=== PATIENT | male | born 1950 | race Two or more races ===

== ENCOUNTER 2017-07-06 14:39 | Inpatient (IN) | payer MEDICARE ==
[~2017-07-06] VITALS: Ht 170.2 cm; Wt 59.0 kg
[~2017-07-06 14:39] MED LIST: ASPI81TA27 PO; CARV3.1240 PO; DOCU-94 PO; FOLI1TAB51 PO; MULTTAB61 PO; SIMV10TA84 PO; THIA100T11 PO
[2017-07-06] MEDS ORDERED: PROPOFOL 100 ML IV ONE (15:01)
[2017-07-06] MEDS ORDERED: ETOMIDATE (2MG/ML) 20ML VIAL IV ONE ×4 (15:01→15:45)
[2017-07-06] MEDS ORDERED: MIDAZOLAM DRIP 50 mg/50mL 50 ML IV SCH ×2 (15:32→15:58)
[2017-07-06] MEDS: PROPOFOL 10 MG/ML 20 ML IV ONE ×2 (15:41→15:52)
[2017-07-06] MEDS ORDERED: AZITHROMYCIN 500MG/ 250ML 250 ML IV ONE (15:45)
[2017-07-06] MEDS ORDERED: cefTRIAXone 1GM/10ml IVPUSH 10 ML IV ONE (15:45)
[2017-07-06] MEDS ORDERED: PROPOFOL 100 ML IV SCH (15:58)
[2017-07-06 16:07] LABS: Basophils # (auto) 0 uL; Eosinophils # (auto) 0.1 uL; Eosinophils % (auto) 0.5 % (0.0-7.0); Hematocrit 39.7 % (41.0-53.0); Hemoglobin 12.5 g/dL (13.5-17.5); Lymphocytes # (auto) 0.3 uL; Lymphocytes % (auto) 2.9 % (10.0-50.0); Mean Corpuscular Hemoglobin 29.5 pg (28.0-32.0); Mean Corpuscular Hgb Conc. 31.4 g/dL (32.0-36.0); Mean Corpuscular Volume 93.7 fL (80.0-100.0); Monocytes # (auto) 0.8 uL; Monocytes % (auto) 7.5 % (0.0-12.0); Neutrophils # (auto) 9.7 uL; Neutrophils % (auto) 89.1 % (37.0-80.0); Nucleated Red Blood Cells % 0.1 %; Platelet Count (auto) 287 10^3/uL (140-450); Red Blood Cells 4.23 10^6/uL (4.5-5.90); Red Cell Distribution Width 13.8 % (11.8-14.3); White Blood Cell 10.9 10^3/uL (4.4-10.8)
[2017-07-06] MEDS ORDERED: SODIUM CHLORIDE 0.9% 1,000 ML IV SCH (16:07)
[2017-07-06] MEDS ORDERED: PIPERACILLIN-TAZOB 3.375GM 50 ML IV SCH (16:10)
[2017-07-06] MEDS ORDERED: MORPHINE SULFATE 4 MG/ML SYR/VIAL IV PRN ×2 (16:15)
[2017-07-06] MEDS ORDERED: NITROGLYCERIN 0.4 MG SL TAB SL PRN (16:15)
[2017-07-06] MEDS ORDERED: ASPirin 300 MG RECTAL SUPP PR ONE (16:15)
[2017-07-06] MEDS ORDERED: FAMOTIDINE (10MG/ML) 2ML VL IV ONE (16:15)
[2017-07-06] MEDS ORDERED: VANCOMYCIN PER PHARMACY 0 MG IV SCH (16:15)
[2017-07-06] MEDS ORDERED: PANTOPRAZOLE 40 MG/10 ML VIAL IV ONE (16:15)
[2017-07-06] MEDS ORDERED: ONDANSETRON HCL 4 MG/2 ML VIAL IV PRN (16:15)
[2017-07-06] MEDS ORDERED: ENALAPRILAT 1.25 MG/ML-1ML VIAL IV PRN (16:30)
[2017-07-06] MEDS ORDERED: LABETALOL HCL 5 MG/ML ML 20ML VIAL IV PRN (16:30)
[2017-07-06 16:35] VITALS: BP 122/75
[2017-07-06 16:58] LABS: Alanine Aminotransferase 28 U/L (16-61); Albumin 3.5 g/dL (3.4-5.0); Alkaline Phosphatase 54 U/L (45-117); Aspartate Aminotransferase 26 U/L (15-37); Bilirubin, Total 0.3 mg/dL (0.2-1.0); Blood Alcohol < 3.0 mg/dL (0-5); Blood Urea Nitrogen 20 mg/dL (7-18); Calcium 8.3 mg/dL (8.5-10.1); Chloride 82 mmol/L (98-107); GFR African American 195 mL/min; GFR Non-African American 161 mL/min; Glucose 119 mg/dL (74-106); Magnesium 2.7 mg/dL (1.6-2.6); Potassium 5.5 mmol/L (3.5-5.1); Sodium 133 mmol/L (136-145); Total Protein 7.7 g/dL (6.4-8.2)
[2017-07-06] MEDS ORDERED: EPINEPHrine HCL 1 MG/10 ML SYRG ONE (16:58)
[2017-07-06] MEDS ORDERED: DOPamine 1600mCg/ml 400MG/250ml NSorD5 KIT/BAG IV ONE (17:00)
[2017-07-06] MEDS ORDERED: SODIUM BICARBONATE 8.4% INJ 50ML SYRINGE IV ONE (17:00)
[2017-07-06] MEDS ORDERED: EPINEPHrine HCL 1 MG/10 ML SYRG IV ONE (17:00)
[2017-07-06 17:08] LABS: Urine Bacteria NONE SEEN /hpf (None Seen); Urine Blood Negative /uL (Negative); Urine Hyaline Cast FEW /lpf (0 - 2); Urine Specific Gravity 1.021 (1.001-1.035); Urine WBC 1 /hpf (0 - 3)
[2017-07-06 18:01] LABS: Anion Gap -1 (5-15)
[2017-07-06 18:04] LABS: Carbon Dioxide 52 mmol/L (21-32)
[2017-07-06] MEDS ORDERED: VANCOMYCIN 1GM/250ML 250 ML IV SCH (20:00)
[2017-07-07] MEDS ORDERED: ENOXAPARIN SOD 40 MG/0.4 ML SYRINGE SC SCH (10:00)
[2017-07-07] MEDS ORDERED: PANTOPRAZOLE 40 MG/10 ML VIAL IV SCH (10:00)
[2017-07-07] MEDS ORDERED: ASPirin 300 MG RECTAL SUPP PR SCH (10:00)
[2017-07-07] MEDS ORDERED: FAMOTIDINE (10MG/ML) 2ML VL IV SCH (10:00)
== END 2017-07-06 17:01 | disposition expired | DRG 871 ==
LOC: EDSEX 14:39 → ER 14:39 → EDBD 14:39 → TELE 14:40
PROVIDERS: ADMIT Internal Medicine; ATTEND Internal Medicine
PROC: 5A1935Z Respiratory Ventilation, Less than 24 Consecutive Hours (ICD-10-PCS; principal; 2017-07-06)
PROC: 0BH17EZ Insertion of Endotracheal Airway into Trachea, Via Natural or Artificial Opening (ICD-10-PCS; 2017-07-06)
PROC: 5A12012 Performance of Cardiac Output, Single, Manual (ICD-10-PCS; 2017-07-06)
DX: A41.9 Sepsis, unspecified organism (principal); G92 Toxic encephalopathy; I49.01 Ventricular fibrillation; J69.0 Pneumonitis due to inhalation of food and vomit; T68.XXXA Hypothermia, initial encounter; I11.0 Hypertensive heart disease with heart failure; I50.9 Heart failure, unspecified; I25.10 Atherosclerotic heart disease of native coronary artery without angina pectoris; E78.5 Hyperlipidemia, unspecified; R06.03 Acute respiratory distress; I70.90 Unspecified atherosclerosis; Z66 Do not resuscitate; Z95.1 Presence of aortocoronary bypass graft
CPT/HCPCS: 31500; 36415; 36600; 51702; 70450; 71045; 80053; 80320; 81001; 82805; 83605; 83735; 83880; 84484; 85025; 87040; 92950; 93005; 94002; 99291; J2250; J2704